=== PATIENT | female | born 1950 | race Caucasian/White ===

== ENCOUNTER → 2016-05-19 | Outpatient (CLI) | payer MEDICARE, OTHER ==
--- NOTE | 2016-05-19 09:20 | MM ---
Reason for exam: clinical finding. Last mammogram was performed 11 months ago. History: Patient is postmenopausal. Family history of breast cancer in cousin at age 53 and premenopausal breast cancer in mother at age 43. Benign left US cyst aspiration of the left breast, May 25, 2009. Benign left US cyst aspiration ea add of the left breast, January 31, 2005. Benign left US cyst aspiration of the left breast, January 31, 2005. Benign US left CoreBiopsy of the left breast, January 31, 2005. Benign excisional biopsy of the left breast, 1984. Cyst aspiration of the left breast. Cyst aspiration of the right breast. Indicated problem(s): pain in the right breast. Physical Findings: Nurse did not find any significant physical abnormalities on exam. MG 3D Diag Mammo W/Cad EDINSON Bilateral CC and MLO view(s) were taken. Prior study comparison: June 29, 2015, right breast MG 3d work up w/cad RT. June 25, 2015, bilateral MG screening mammo w CAD. The breast tissue is heterogeneously dense. This may lower the sensitivity of mammography. Previous mammotome biopsy in the left breast. No significant new findings when compared with previous films. These results were verbally communicated with the patient and result sheet given to the patient on 05/19/16. ASSESSMENT: Benign, BI-RAD 2 RECOMMENDATION: Ultrasound of the right breast in 6 months.
--- NOTE | 2016-05-19 09:22 | USB ---
Reason for exam: clinical finding. History: Patient is postmenopausal. Family history of breast cancer in cousin at age 53 and premenopausal breast cancer in mother at age 43. Benign left US cyst aspiration of the left breast, May 25, 2009. Benign left US cyst aspiration ea add of the left breast, January 31, 2005. Benign left US cyst aspiration of the left breast, January 31, 2005. Benign US left CoreBiopsy of the left breast, January 31, 2005. Benign excisional biopsy of the left breast, 1984. Cyst aspiration of the left breast. Cyst aspiration of the right breast. Indicated problem(s): pain in the right breast. US Breast RT Right breast ultrasound including all four quadrants, the retroareolar region and axilla demonstrates a 0.41 x 0.30 x 0.40cm mixed lesion at 2 o'clock and a 0.32 x 0.36 x 0.45cm cystic lesion at 10 o'clock nipple. The decision to biopsy can be made based on clinical findings. These results were verbally communicated with the patient and result sheet given to the patient on 05/19/16. ASSESSMENT: Probably benign, BI-RAD 3 RECOMMENDATION: Ultrasound of the right breast in 6 months. Manage on a clinical basis with regard to pain.
== END | disposition home or self-care (01) ==
LOC: RADMAMWWP 07:39
PROVIDERS: ATTEND Surgery
DX: N60.01 Solitary cyst of right breast (principal)
CPT/HCPCS: 76641; G0204; G0279

== ENCOUNTER → 2016-11-03 | Outpatient (CLI) | payer MEDICARE, OTHER ==
--- NOTE | 2016-11-03 11:39 | USB ---
Reason for exam: follow-up at short interval from prior study. History: Patient is postmenopausal. Family history of breast cancer in cousin at age 53 and premenopausal breast cancer in mother at age 43. Benign left US cyst aspiration of the left breast, May 25, 2009. Benign left US cyst aspiration ea add of the left breast, January 31, 2005. Benign left US cyst aspiration of the left breast, January 31, 2005. Benign US left CoreBiopsy of the left breast, January 31, 2005. Benign excisional biopsy of the left breast, 1984. Cyst aspiration of the left breast. Cyst aspiration of the right breast. Physical Findings: Nurse Summary: right breast posterior nipple prominent nodulaity, all soft, movable, nodular (nurse ts). US Breast RT Right breast ultrasound includes all four quadrants, the retroareolar region and axilla. Finding demonstrates a 0.3 x 0.2 x 0.2cm oval, hypoechoic lesion at 3 o'clock, too small to characterize well, possible new from prior exam for which a 6 month follow up ultrasound is recommended, a 0.3 x 0.3 x 0.2cm oval, hypoechoic lesion at 11 o'clock, too small to characterize well, possible new from prior exam for which a 6 month follow up ultrasound is recommended, a 0.3 x 0.4 x 0.3cm oval, hypoechoic lesion at 11:30, too small to characterize well, possible new from prior exam for which a 6 month follow up ultrasound is recommended and a 0.5 x 0.4 x 0.4cm oval, cystic lesion at the retroareolar position, corresponds to previous 10 o'clock lesion, benign. These results were verbally communicated with the patient and result sheet given to the patient on 11/03/16. ASSESSMENT: Probably benign, BI-RAD 3 RECOMMENDATION: Follow-up diagnostic mammogram of both breasts in 6 months. Back on schedule. Ultrasound of the right breast in 6 months.
== END | disposition home or self-care (01) ==
LOC: RADUSWWP 10:12
PROVIDERS: ATTEND Surgery
DX: R92.8 Other abnormal and inconclusive findings on diagnostic imaging of breast (principal)

== ENCOUNTER → 2017-05-11 | Outpatient (CLI) | payer MEDICARE, OTHER ==
--- NOTE | 2017-05-11 13:37 | MM ---
Reason for exam: additional evaluation requested from prior study. Last mammogram was performed 1 year ago. History: Patient is postmenopausal. Family history of breast cancer in cousin at age 53 and premenopausal breast cancer in mother at age 43. Benign left US cyst aspiration of the left breast, May 25, 2009. Benign left US cyst aspiration ea add of the left breast, January 31, 2005. Benign left US cyst aspiration of the left breast, January 31, 2005. Benign US left CoreBiopsy of the left breast, January 31, 2005. Benign excisional biopsy of the left breast, 1984. Cyst aspiration of the left breast. Cyst aspiration of the right breast. Physical Findings: Nurse Summary: 1cm nodule in the right breast at 12 o'clock (nurse dw). MG 3D Diag Mammo W/Cad EDINSON Bilateral CC and MLO view(s) were taken. Prior study comparison: May 19, 2016, bilateral MG 3d diag mammo w/cad EDINSON. June 29, 2015, right breast MG 3d work up w/cad RT. The breast tissue is heterogeneously dense. This may lower the sensitivity of mammography. Previous mammotome biopsy in the left breast. 7 o'clock and 1 o'clock nodular asymmetries on the left breast appear more defined/new. Palpable markers on the right at 12 o'clock. These results were verbally communicated with the patient and result sheet given to the patient on 05/11/17. ASSESSMENT: Incomplete: need additional imaging evaluation, BI-RAD 0 RECOMMENDATION: Ultrasound of both breasts.
--- NOTE | 2017-05-11 13:45 | USB ---
Reason for exam: additional evaluation requested from abnormal screening. History: Patient is postmenopausal. Family history of breast cancer in cousin at age 53 and premenopausal breast cancer in mother at age 43. Benign left US cyst aspiration of the left breast, May 25, 2009. Benign left US cyst aspiration ea add of the left breast, January 31, 2005. Benign left US cyst aspiration of the left breast, January 31, 2005. Benign US left CoreBiopsy of the left breast, January 31, 2005. Benign excisional biopsy of the left breast, 1984. Cyst aspiration of the left breast. Cyst aspiration of the right breast. US Breast BILAT Right breast ultrasound includes all four quadrants, the retroareolar region and axilla. Finding demonstrates a 3 x 3 x 4mm oval lesion too small to characterize at 11-12 o'clock and a 3 x 3 x 4mm oval, cystic lesion at the retroareolar position. No sonographic abnormality at the 12 o'clock palpable. Left breast ultrasound includes all four quadrants, the retroareolar region and axilla. Finding demonstrates a 3 x 3 x 3mm oval lesion too small to characterize at 7 o'clock, a 4 x 2 x 3mm small cystic cluster at 1 o'clock and a 6 x 5 x 6mm irregular, solid, hypoechoic lesion at 3:30, 2.5cm from nipple, for which a biopsy is recommended. These results were verbally communicated with the patient and result sheet given to the patient on 05/11/17. ASSESSMENT: Suspicious, BI-RAD 4 RECOMMENDATION: Surgical consultation and ultrasound core biopsy of the left breast. (3:30) Called with mammographic findings and has scheduled an appointment for the patient for 07/08/17 at 1:[address] Watson. Biopsy scheduled for 05/15/17 at 8:20. PRELIMINARY REPORT CALLED AND FAXED TO DR. WATSON ON 05/11/17.
== END | disposition home or self-care (01) ==
LOC: RADMAMWWP 10:05
PROVIDERS: ATTEND Surgery
DX: R92.8 Other abnormal and inconclusive findings on diagnostic imaging of breast (principal)
CPT/HCPCS: 77066; 76641; G0279

== ENCOUNTER → 2017-05-15 | Day surgery (SDC) | payer MEDICARE, OTHER ==
[2017-05-15 07:23] VITALS: BP 131/73; PULSE 83; RESP 16; TEMP 98; BMI 21.2
--- NOTE | 2017-05-15 08:42 | USB ---
Discontinued left breast core biopsy Ultrasound performed at the level of the previously identified lesion at 3:30 within the left breast. Exam is correlated to previous ultrasound dated 05/11/2017 The previously described lesion at the 3:30 position within the left breast is somewhat more well-def ined and the current exam measuring only 4 mm rather than 6 mm as on prior. There is central increase d echogenicity with shadowing, focus appears more well-defined. IMPRESSION: Following discussion with the patient, she elects to have short interval follow-up breast ultrasound in 3-6 months to assess for any interval change, consider biopsy at that time
== END ==
LOC: RADUSWWP 07:01
PROVIDERS: ATTEND Surgery
DX: N63.23 Unspecified lump in the left breast, lower outer quadrant (principal); Z53.9 Procedure and treatment not carried out, unspecified reason

== ENCOUNTER 2017-07-03 07:10 | Day surgery (SDC) | payer MEDICARE, OTHER ==
[2017-07-01 10:22] VITALS: BMI 21.0
[~2017-07-03 07:10] MED LIST: LACTATED RINGERS 1,000 ML IV SCH
[2017-07-03 07:26] VITALS: TEMP 97.6
[2017-07-03] MEDS ORDERED: PROPOFOL 10 MG/ML 20 ML VIAL IV ONE (07:42)
--- NOTE | 2017-07-03 07:57 | P.GSHP ---
History of Present Illness H&P Date: 07/03/17 Chief Complaint: Colon cancer screening Patient here today for colonoscopy. Last colonoscopy approximately 7 years ago. She has a history of colon polyps in the past. No family history of colon cancer. No bowel related complaints. Past Medical History Past Medical History: No Reported History History of Any Multi-Drug Resistant Organisms: None Reported Past Surgical History: Uterine Ablation Additional Past Surgical History / Comment(s): COLONOSCOPY. BREAST BIOPIES Past Anesthesia/Blood Transfusion Reactions: Previous Problems w/ Anesthesia, Family History of Problems w/ Anesthesia Additional Past Anesthesia/Blood Transfusion Reaction / Comment(s): HAD ANAPHYLACTIC REACTION WITH SUCCINYCHOLINE. BROTHER ALSO HAS ALLERGY TO SUCCINYCHOLINE Smoking Status: Never smoker - Past Family History Mother Family Medical History: No Reported History Medications and Allergies Home Medications Medication Instructions Recorded Confirmed Type No Known Home Medications [No 05/12/17 07/03/17 History Known Home Medications] Allergies Allergy/AdvReac Type Severity Reaction Status Date / Time erythromycin base Allergy Rash/Hives Verified 07/01/17 10:17 succinylcholine Allergy Anaphylaxis Verified 07/01/17 10:17 Surgical - Exam Vital Signs Temp Pulse Resp BP Pulse Ox 97.6 F 96 14 129/78 100 07/03/17 07:24 07/03/17 07:24 07/03/17 07:24 07/03/17 07:24 07/03/17 07:24 Physical exam: General: Well-developed, well-nourished HEENT: Normocephalic, sclerae nonicteric Abdomen: Nontender, nondistended Extremities: No edema Neuro: Alert and oriented Assessment and Plan (1) Colon cancer screening Narrative/Plan: Will proceed with colonoscopy at this time Current Visit: Yes Status: Acute Code(s): Z12.11 - ENCOUNTER FOR SCREENING FOR MALIGNANT NEOPLASM OF COLON SNOMED Code(s): 404427497
--- NOTE | 2017-07-03 08:17 | P.PCN ---
Date of Procedure: 07/03/17 Procedure(s) Performed: PREOPERATIVE DIAGNOSIS: Screening, history of polyps POSTOPERATIVE DIAGNOSIS: Small sigmoid polyp PROCEDURE: Colonoscopy with snare polypectomy ANESTHESIA: MAC SURGEON: Dudley Watson M.D. SPECIMENS: Sigmoid polyp ENDOSCOPIC PROCEDURE: The patient was placed on the endoscopy table in the left decubitus position. The Olympus colonoscope was inserted into the anus and passed under direct visualization to the base of the cecum. The appendiceal orifice was visualized. From that point the scope was slowly withdrawn inspecting all surfaces carefully. There were no neoplastic inflammatory or polypoid lesions throughout the cecum, ascending, transverse, and descending colon. In the sigmoid there is noted to be a small polyp that was removed using the snare with cautery technique. This was so small that it looked to be fulgurated completely with the use of cautery. No specimen was obtained. Rectum appeared normal. There is no visible diverticulosis. Digital rectal examination was normal. The patient was taken to the recovery room in stable condition per anesthesia guidelines. RECOMMENDATIONS: Await biopsy results. Follow-up colonoscopy 5-7 years.
[2017-07-03 08:22] VITALS: RESP 16
[2017-07-03 08:53] VITALS: BP 109/51; PULSE 78
== END 2017-07-03 09:07 | disposition home or self-care (01) ==
LOC: ORWHC2ENDO 07:10
PROVIDERS: ATTEND Surgery
DX: Z12.11 Encounter for screening for malignant neoplasm of colon (principal); K63.5 Polyp of colon; Z86.010 Personal history of colon polyps; Z88.4 Allergy status to anesthetic agent; Z88.1 Allergy status to other antibiotic agents
CPT/HCPCS: 45385; J2704

== ENCOUNTER → 2017-08-18 | Outpatient (CLI) | payer MEDICARE, OTHER ==
--- NOTE | 2017-08-18 12:08 | USB ---
Reason for exam: follow-up at short interval from prior study. History: Patient is postmenopausal. Family history of breast cancer in cousin at age 53 and premenopausal breast cancer in mother at age 43. US discontinued breast core LT of the left breast, May 15, 2017. Benign left US cyst aspiration of the left breast, May 25, 2009. Benign left US cyst aspiration ea add of the left breast, January 31, 2005. Benign left US cyst aspiration of the left breast, January 31, 2005. Benign US left CoreBiopsy of the left breast, January 31, 2005. Benign excisional biopsy of the left breast, 1984. Cyst aspiration of the left breast. Cyst aspiration of the right breast. Physical Findings: Nurse did not find any significant physical abnormalities on exam. US Breast LT Left breast ultrasound includes all four quadrants, the retroareolar region and axilla. Finding demonstrates a 0.4 x 0.2 x 0.4cm cystic cluster at 1 o'clock, a 0.5 x 0.6 x 0.7cm hypoechoic lesion at 3:30 and a 0.3 x 0.3 x 0.3cm lesion too small to characterize at 7 o'clock. These results were verbally communicated with the patient and result sheet given to the patient on 08/18/17. ASSESSMENT: Benign, BI-RAD 2 RECOMMENDATION: Follow-up diagnostic mammogram of both breasts in 9 months. Back on schedule for April 2018.
== END | disposition home or self-care (01) ==
LOC: RADUSWWP 08:56
PROVIDERS: ATTEND Surgery
DX: R92.8 Other abnormal and inconclusive findings on diagnostic imaging of breast (principal)

== ENCOUNTER → 2018-07-02 | Outpatient (CLI) | payer MEDICARE, OTHER ==
--- NOTE | 2018-07-02 11:00 | MM ---
Reason for exam: additional evaluation requested from prior study. Last mammogram was performed 1 year and 2 months ago. History: Patient is postmenopausal. Family history of breast cancer in cousin at age 53 and premenopausal breast cancer in mother at age 43. US discontinued breast core LT of the left breast, May 15, 2017. Benign left US cyst aspiration of the left breast, May 25, 2009. Benign left US cyst aspiration ea add of the left breast, January 31, 2005. Benign left US cyst aspiration of the left breast, January 31, 2005. Benign US left CoreBiopsy of the left breast, January 31, 2005. Benign excisional biopsy of the left breast, 1984. Cyst aspiration of the left breast. Cyst aspiration of the right breast. Physical Findings: Nurse did not find any significant physical abnormalities on exam. MG 3D Diag Mammo W/Cad EDINSON Bilateral CC and MLO view(s) were taken. Prior study comparison: May 11, 2017, bilateral MG 3d diag mammo w/cad EDINSON. May 19, 2016, bilateral MG 3d diag mammo w/cad EDINSON. The breast tissue is heterogeneously dense. This may lower the sensitivity of mammography. Benign appearing bilateral calcifications. Previous mammotome biopsy in the left breast. No significant new findings when compared with previous films. These results were verbally communicated with the patient and result sheet given to the patient on 07/02/18. ASSESSMENT: Benign, BI-RAD 2 RECOMMENDATION: Routine screening mammogram of both breasts in 1 year.
== END | disposition home or self-care (01) ==
LOC: RADMAMWWP 09:24
PROVIDERS: ATTEND Surgery
DX: R92.8 Other abnormal and inconclusive findings on diagnostic imaging of breast (principal)
CPT/HCPCS: 77066; G0279; 77062

== ENCOUNTER → 2021-02-06 | Outpatient (CLI) | payer MEDICARE, OTHER ==
--- NOTE | 2021-02-06 13:11 | BD ---
EXAMINATION TYPE: Axial Bone Density DATE OF EXAM: 02/06/2021 COMPARISON: 06.30.2012 CLINICAL HISTORY: 70 YR OLD FEMALE......ICD-10 CODE: M85.859 OSTEOPENIA OF HIP Height: 61.8 Weight: 121 FRAX RISK QUESTIONS: NOTHING TO NOTE HERE RISK FACTORS HISTORY OF: History of Wrist Fracture: RT WRIST YOUNG ADULT Postmenopausal woman: YES, AT AGE 53 Hyperparathyroidism: NO Adrenal Insufficiency: NO MEDICATIONS: Additional Medications: VIT D, Additional History: NOTHING TO NOTE EXAM MEASUREMENTS: Bone mineral densitometry was performed using the [employer] System. Bone mineral density as measured about the Lumbar spine is: ----- L1-L4(G/cm2): 0.963 T Score Values are as follows: ----- L1: -1.7 ----- L2: -1.9 ----- L3: -1.6 ----- L4: -2.1 ----- L1-L4: -1.8 Bone mineral density has: Decreased -11.0% since study of: 06.30.2012 Bone mineral density about the R hip (g/cm2): 0.743 Bone mineral density about the L hip (g/cm2): 0.701 T Score values are as follows: -----R Neck: -2.1 -----L Neck: -2.6 -----R Total: -2.1 -----L Total: -2.4 Bone mineral density has: Decreased -11.3% since study of: 06.30.2012 FRAX%s: THERE IS A 14.3% CHANCE FOR A MAJOR OSTEOPOROTIC FX AND A 3.9% FOR HIP.....PROBABILITY FOR FX IN 10 YRS TIME IMPRESSION: Osteoporosis (T Score less than -2.5). There is increased fracture risk and therapy is usually indicated based on age. Re-Screen 1-2 years. NOTE: T-SCORE=SD OF THE YOUNG ADULT MEAN.
--- NOTE | 2021-02-07 14:20 | MM ---
Reason for exam: screening (asymptomatic). Last mammogram was performed 1 year and 3 months ago. History: Patient is postmenopausal. Family history of breast cancer in cousin at age 53 and premenopausal breast cancer in mother at age 43. US discontinued breast core LT of the left breast, May 15, 2017. Benign left US cyst aspiration of the left breast, May 25, 2009. Benign left US cyst aspiration ea add of the left breast, January 31, 2005. Benign left US cyst aspiration of the left breast, January 31, 2005. Benign US left CoreBiopsy of the left breast, January 31, 2005. Benign excisional biopsy of the left breast, 1984. Cyst aspiration of the left breast. Cyst aspiration of the right breast. Physical Findings: A clinical breast exam by your physician is recommended on an annual basis and results should be correlated with mammographic findings. MG 3D Screening Mammo W/Cad Bilateral CC and MLO view(s) were taken. Prior study comparison: November 18, 2019, bilateral MG 3d screening mammo w/cad. July 02, 2018, bilateral MG 3d diag mammo w/cad EDINSON. The breast tissue is heterogeneously dense. This may lower the sensitivity of mammography. Previous mammotome biopsy in the right breast. No significant changes when compared with prior studies. ASSESSMENT: Benign, BI-RAD 2 RECOMMENDATION: Routine screening mammogram of both breasts in 1 year.
== END | disposition home or self-care (01) ==
LOC: RADMAMWWP 08:06
PROVIDERS: ATTEND Internal Medicine
DX: Z12.31 Encounter for screening mammogram for malignant neoplasm of breast (principal); M85.859 Other specified disorders of bone density and structure, unspecified thigh; M81.0 Age-related osteoporosis without current pathological fracture
CPT/HCPCS: 77063; 77067; 77080

== ENCOUNTER → 2021-11-28 | Outpatient (CLI) | payer MEDICARE | END | disposition home or self-care (01) | LOC: RADMAMWWP 10:17 | PROVIDERS: ATTEND Internal Medicine | DX: Z53.9 Procedure and treatment not carried out, unspecified reason (principal) ==

== ENCOUNTER → 2022-01-23 | Outpatient (CLI) | payer MEDICARE ==
--- NOTE | 2022-01-23 12:10 | NM ---
EXAMINATION TYPE: NM stress cardiolite complete DATE OF EXAM: 01/23/2022 COMPARISON: NONE HISTORY: Chest pain TECHNIQUE: After the intravenous administration of 9.6 mCi Tc 99m Sestamibi - Rest images obtained 4 5 minutes post injection. The patient exercised using a IVAN protocol and 1 minute prior to peak e xercise was injected with 24 mCi Tc 99m Sestamibi - Stress images obtained 25 minutes post injection. FINDINGS: Targeted heart rate was achieved during performance of the study. Review of stress and rest SPECT josé luis ges demonstrates no distinct perfusion abnormality. Gated analysis shows normal wall motion with an estimated left ventricular ejection fraction of 56 %. IMPRESSION: No scintigraphic evidence for reversible ischemia
== END | disposition home or self-care (01) ==
LOC: RADNMMAIN 08:15
PROVIDERS: ATTEND Internal Medicine
DX: I25.10 Atherosclerotic heart disease of native coronary artery without angina pectoris (principal)
CPT/HCPCS: 93017; 78452; A9500

== ENCOUNTER → 2022-02-13 | Outpatient (CLI) | payer MEDICARE ==
--- NOTE | 2022-02-14 09:47 | MM ---
Reason for Exam: Screening (asymptomatic). Last screening mammogram was performed 12 month(s) ago. Patient History: Menarche at age 15. First Full-Term at age 21. Postmenopausal. Cyst Aspiration on the Right side. Cyst Aspiration on the Left side. 1984, Benign Excisional Biopsy on the left side. 05/25/2009, Benign Cyst Aspiration on the left side. 01/31/2005, Benign Cyst Aspiration on the left side. 01/31/2005, Benign Cyst Aspiration on the left side. 01/31/2005, Benign Core Biopsy on the left side. 05/15/2017, US discontinued breast core LT on the left side. Maternal cousin had breast cancer, age 53. Maternal cousin had breast cancer under age 50. Mother had breast cancer, age 43. Risk Values: Mable 5 year model risk: 4.5%. NCI Lifetime model risk: 12.7%. Prior Study Comparison: 07/02/2018 Bilateral Diagnostic Mammogram, [facility]. 11/18/2019 Bilateral Screening Mammogram, [facility]. 02/06/2021 Bilateral Screening Mammogram, [facility]. Tissue Density: The breast tissue is heterogeneously dense. This may lower the sensitivity of mammography. Findings: Analyzed By CAD. Left breast biopsy clip is present. There is no suspicious group of microcalcifications or new suspicious mass in either breast. Overall Assessment: Negative, BI-RAD 1 Management: Screening Mammogram of both breasts in 1 year. A clinical breast exam by your physician is recommended on an annual basis and results should be correlated with mammographic findings. [facility] will attempt to contact patient to return for supplemental views and ultrasound if indicated. Electronically signed and approved by: Kurtis Cardenas DO
== END | disposition home or self-care (01) ==
LOC: RADMAMWWP 09:59
PROVIDERS: ATTEND Internal Medicine
DX: Z12.31 Encounter for screening mammogram for malignant neoplasm of breast (principal)
CPT/HCPCS: 77063; 77067

== ENCOUNTER → 2023-02-17 | Outpatient (CLI) | payer MEDICARE ==
--- NOTE | 2023-02-17 14:31 | BD ---
EXAMINATION TYPE: Axial Bone Density DATE OF EXAM: 02/17/2023 CLINICAL HISTORY: 72 years old Female. ICD-10 CODE: M81.0 AGE RELATED OSTEOPOROSIS Height: 62 Weight: 117.6 FRAX RISK QUESTIONS: Alcohol (3 or more units per day): no Family History (Parent hip fracture): no Glucocorticoids (More than 3mos): no (Ex: prednisone, prednisolone, methylprednisolone, dexamethasone, and hydrocortisone). History of Fracture in Adulthood: no Secondary Osteoporosis: 1. Type 1 Diabetes: no 2. Hyperthyroidism: no 3. Menopause before 45: no 4. Malnutrition: no 5. Chronic liver disease: no Rheumatoid Arthritis: no Current Tobacco Use: no RISK FACTORS HISTORY OF: Active: yes Postmenopausal woman: yes Additional History: EXAM MEASUREMENTS: Bone mineral densitometry was performed using the [employer] System. Bone mineral density as measured about the Lumbar spine is: ----- L1-L4(G/cm2): 0.947 T Score Values are as follows: ----- L1: -1.9 ----- L2: -2.3 ----- L3: -1.6 ----- L4: -2.1 ----- L1-L4: -1.9 Z Score Values are as follows: ----- L1: 0.2 ----- L2: -0.2 ----- L3: 0.5 ----- L4: 0.0 ----- L1-L4: 0.1 Bone mineral density has: decreased -1.7 % since study of: 02.06.2021 Bone mineral density about the R hip (g/cm2): 0758 Bone mineral density about the L hip (g/cm2): 0.727 T Score values are as follows: -----R Neck: -1.7 -----L Neck: -2.2 -----R Total: -2.0 -----L Total: -2.2 Z Score values are as follows: -----R Neck: 0.3 -----L Neck: -0.2 -----R Total: -0.1 -----L Total: -0.4 Bone mineral density has: increased 2.8 % since study of: 02.06.2021 FRAX%s: The graph provided illustrates a 12.7% chance for a major osteoporotic fx and a 3.2% chance f or the hips probability for fx in 10 years time. IMPRESSION: Osteopenia (T Score between -2.5 and -1). There is slightly increased risk of fracture and the patient may be considered for treatment. Re-Screen 2-5 years. NOTE: T-SCORE=SD OF THE YOUNG ADULT MEAN.
--- NOTE | 2023-02-18 15:50 | MM ---
Reason for Exam: Screening (asymptomatic). Last screening mammogram was performed 12 month(s) ago. Patient History: Menarche at age 15. First Full-Term at age 21. Postmenopausal. Cyst Aspiration on the Right side. Cyst Aspiration on the Left side. 1984, Benign Excisional Biopsy on the left side. 05/25/2009, Benign Cyst Aspiration on the left side. 01/31/2005, Benign Cyst Aspiration on the left side. 01/31/2005, Benign Cyst Aspiration on the left side. 01/31/2005, Benign Core Biopsy on the left side. 05/15/2017, US discontinued breast core LT on the left side. Maternal cousin had breast cancer, age 53. Maternal cousin had breast cancer under age 50. Mother had breast cancer, age 43. Risk Values: Mable 5 year model risk: 4.5%. NCI Lifetime model risk: 12.2%. Prior Study Comparison: 11/18/2019 Bilateral Screening Mammogram, [facility]. 02/06/2021 Bilateral Screening Mammogram, [facility]. 02/13/2022 Bilateral MG 3D screening mammo w/cad, [facility]. Tissue Density: The breast tissue is heterogeneously dense. This may lower the sensitivity of mammography. Findings: Analyzed By CAD. Appears symmetrical and stable. No significant interval change is evident. Benign calcifications are present bilaterally. Core markers within the left breast. No suspicious groups of microcalcifications, spiculated or lobular masses, architectural distortion or other secondary signs of malignancy are mammographically apparent. Overall Assessment: Benign, BI-RAD 2 Management: Screening Mammogram of both breasts in 1 year. A negative mammogram report should not preclude additional follow up of suspicious palpable abnormalities. Patient should continue monthly self breast exam. A clinical breast exam by your physician is recommended on an annual basis and results should be correlated with mammographic findings. Electronically signed and approved by: Abimael Junior D.O. Radiologis
== END | disposition home or self-care (01) ==
LOC: RADMAMWWP 08:49
PROVIDERS: ATTEND Internal Medicine
DX: Z12.31 Encounter for screening mammogram for malignant neoplasm of breast (principal); M81.0 Age-related osteoporosis without current pathological fracture; M85.89 Other specified disorders of bone density and structure, multiple sites; Z78.0 Asymptomatic menopausal state; Z80.3 Family history of malignant neoplasm of breast
CPT/HCPCS: 77063; 77067; 77080

== ENCOUNTER → 2023-08-12 | Outpatient (CLI) | payer MEDICARE ==
--- NOTE | 2023-08-12 09:26 | MM ---
Reason for Exam: Follow-up at short interval from prior study. Last screening mammogram was performed 6 month(s) ago. Patient History: Menarche at age 15. First Full-Term at age 21. Postmenopausal. Patient used Hormonal Contraceptives for 1 year. Cyst Aspiration on the Right side. Cyst Aspiration on the Left side. 1984, Benign Excisional Biopsy on the left side. 05/25/2009, Benign Cyst Aspiration on the left side. 01/31/2005, Benign Cyst Aspiration on the left side. 01/31/2005, Benign Cyst Aspiration on the left side. 01/31/2005, Benign Core Biopsy on the left side. 05/15/2017, US discontinued breast core LT on the left side. Maternal cousin had breast cancer, age 53. Maternal cousin had breast cancer under age 50. Mother had breast cancer, age 43. Risk Values: Mable 5 year model risk: 4.6%. NCI Lifetime model risk: 11.6%. Prior Study Comparison: 07/28/1995 Screening Mammogram, Unknown. 08/09/1996 Screening Mammogram, Unknown. 06/29/2015 Right Diagnostic Mammogram, [facility]. 02/28/2016 Right Diagnostic Ultrasound, [facility]. 05/19/2016 Bilateral Diagnostic Mammogram, [facility]. 05/19/2016 Right Diagnostic Ultrasound, [facility]. 11/03/2016 Right Diagnostic Ultrasound, [facility]. 05/11/2017 Bilateral Diagnostic Mammogram, [facility]. 05/11/2017 Bilateral Diagnostic Ultrasound, [facility]. 08/18/2017 Left Diagnostic Ultrasound, [facility]. 07/02/2018 Bilateral Diagnostic Mammogram, [facility]. 11/18/2019 Bilateral Screening Mammogram, [facility]. 02/06/2021 Bilateral Screening Mammogram, [facility]. 02/13/2022 Bilateral MG 3D screening mammo w/cad, [facility]. 02/17/2023 Bilateral MG 3D screening mammo w/cad, [facility]. Tissue Density: The breasts are heterogeneously dense, which may obscure small masses. Findings: Analyzed By CAD. The pattern is symmetrical. No significant interval change is evident. A core marker is within the left breast. Prior left breast (biopsy near the nipple region is marked on this exam. No suspicious abnormalities to account for the pulling sensation is identified. Ultrasound left breast is recommended for additional workup. Coarse benign-appearing calcifications remain present within the left breast. Benign round and punctate calcifications are present bilaterally. No suspicious groups of microcalcifications, spiculated or lobular masses, architectural distortion or other secondary signs of malignancy are mammographically apparent. Overall Assessment: Incomplete: need additional imaging evaluation, BI-RAD 0 Management: Diagnostic Breast Ultrasound of the left breast. A negative mammogram report should not preclude additional follow up of suspicious palpable abnormalities. Patient should continue monthly self breast exam. A clinical breast exam by your physician is recommended on an annual basis and results should be correlated with mammographic findings. Note on Mable scores and lifetime risk: 1. A Mable score greater than 3% is considered moderate risk. If this is the case, consider specialist referral to assess eligibility for a risk reducing agent. 2. If overall lifetime risk for the development of breast cancer is 20% or higher, the patient may qualify for future screening with alternating mammogram and breast MRI. Electronically signed and approved by: Abimael Junior D.O. Radiologis
--- NOTE | 2023-08-12 09:49 | USB ---
Reason for Exam: Clinical finding. Patient History: Menarche at age 15. First Full-Term at age 21. Postmenopausal. Patient used Hormonal Contraceptives for 1 year. Cyst Aspiration on the Right side. Cyst Aspiration on the Left side. 1984, Benign Excisional Biopsy on the left side. 05/25/2009, Benign Cyst Aspiration on the left side. 01/31/2005, Benign Cyst Aspiration on the left side. 01/31/2005, Benign Cyst Aspiration on the left side. 01/31/2005, Benign Core Biopsy on the left side. 05/15/2017, US discontinued breast core LT on the left side. Maternal cousin had breast cancer, age 53. Maternal cousin had breast cancer under age 50. Mother had breast cancer, age 43. Risk Values: Mable 5 year model risk: 4.6%. NCI Lifetime model risk: 11.6%. Technique: Method: Whole Breast Handheld. Doppler: Color. Patient Position: Supine. Prior Study Comparison: 08/18/2017 Left Diagnostic Ultrasound, [facility]. 02/06/2021 Bilateral Screening Mammogram, [facility]. 02/13/2022 Bilateral MG 3D screening mammo w/cad, [facility]. 02/17/2023 Bilateral MG 3D screening mammo w/cad, [facility]. Findings: The whole breast of the left breast, the axilla of the left breast and the retroareolar of the left breast were scanned. Small cysts is at the 4:00 position approximately 3 cm from the nipple. This area is a location of the patient's prior open biopsy. Some vague shadowing may be present as region likely related to the prior biopsy scar. This correlates with the patient's area of pulling. Management recommended. If clinical findings are changing, diagnostic imaging with mammogram and ultrasound can be performed. Overall Assessment: Benign, BI-RAD 2 Management: Screening Mammogram of both breasts in 6 months. A clinical breast exam by your physician is recommended on an annual basis and results should be correlated with mammographic findings. This exam should not preclude additional follow-up of suspicious palpable abnormalities. Results were given to the patient verbally at the time of exam. Electronically signed and approved by: Abimael Junior D.O. Radiologis
== END | disposition home or self-care (01) ==
LOC: RADMAMWWP 08:29
PROVIDERS: ATTEND Internal Medicine
DX: R92.333 Mammographic heterogeneous density, bilateral breasts (principal); N60.02 Solitary cyst of left breast; Z80.3 Family history of malignant neoplasm of breast; Z78.0 Asymptomatic menopausal state
CPT/HCPCS: 77066; 76641; G0279; 77062

== ENCOUNTER → 2024-02-02 | Outpatient (CLI) | payer MEDICARE ==
[2024-02-02 13:28] VITALS: BP 144/75; PULSE 65; RESP 16; TEMP 98.1
--- NOTE | 2024-02-02 14:24 | P.HPOB ---
History of Present Illness H&P Date: 02/02/24 Chief Complaint: Patient is here for her routine gynecologic exam. This is a 73-year-old G2, P2 with an LMP of 2003. The patient is here to establish with this office. It has been about 2 years since her last pelvic exam. She previously saw Dr. Hayes for her gynecologic care prior to age 66. She is without gynecologic complaints and denies any postmenopausal bleeding. Review of Systems The patient's weight has been stable over the last year. She denies respiratory, cardiac, or G.I. problems. Past Medical History Past Medical History: Hyperlipidemia Additional Past Medical History / Comment(s): Cystic breasts. Osteopenia. 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 History of Any Multi-Drug Resistant Organisms: None Reported Past Surgical History: Uterine Ablation Additional Past Surgical History / Comment(s): hx. benign aspirations bilateral breasts. Breast biopsy in the past. D&C. Colonoscopy 2018(next after 7yr) Additional Past Anesthesia/Blood Transfusion Reaction / Comment(s): allergy to succinylcholine- severe. 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 She is not sexually active. - Past Family History Mother Family Medical History: Cancer Additional Family Medical History / Comment(s): Breast cancer. . Maternal cousins had breast cancer. Maternal aunt had cervical cancer. Father Family Medical History: COPD Additional Family Medical History / Comment(s): Multiple sclerosis. . Sister(s) Family Medical History: Rheumatoid Arthritis (RA) Medications and Allergies Home Medications Medication Instructions Recorded Confirmed Type No Known Home Medications 05/12/17 07/03/17 History Allergies Allergy/AdvReac Type Severity Reaction Status Date / Time erythromycin base Allergy Rash/Hives Verified 02/02/24 13:25 succinylcholine Allergy Anaphylaxis Verified 02/02/24 13:25 Exam Vital Signs Temp Pulse Resp BP Pulse Ox 02/02/24 13:26 98.1 F 65 16 144/75 98 Intake and Output 02/01/24 02/02/24 02/02/24 22:59 06:59 14:59 Other: Weight 54.431 kg Height 5 feet 1 inch, weight 120 pounds, BMI 22.7. This is a well-developed well-nourished white female who is alert and oriented times 3 in no acute distress. HEENT: Within normal limits. NECK: Supple without mass or thyromegaly. CHEST AND LUNGS: Clear to auscultation. HEART: Regular rate and rhythm. BREASTS: Are without mass or discharge. AXILLARY EXAM: Negative for adenopathy. BACK: Negative for CVA tenderness. ABDOMEN: Soft, nontender, without palpable masses. PELVIC EXAM: Normal external genitalia with mild to moderate atrophy. Cervix and vagina appear normal with moderate atrophy. Cervix is stenotic secondary to atrophy there is no unusual discharge. There is no evidence of prolapse. The uterus is midposition, atrophic, nongravid size and nontender. There are no palpable adnexal masses or tenderness. RECTAL EXAM: Rectovaginal exam is negative for mass or tenderness and is negative for occult blood. EXTREMITIES: Nontender. IMPRESSION: 1. 73-year-old menopausal female with normal gynecologic exam. 2. History of osteopenia. PLAN: 1. Pap smear was performed. We will be requesting records from Dr. Hayes's office regarding her Pap smears after the age of 56. We will then determine if Pap smears can be discontinued. 2. Self breast awareness was discussed with the patient. We have also discussed symptoms associated with inflammatory breast cancer. 3. Screening mammogram is due and the order slip was given to the patient for this. 4. Osteoporosis prevention was discussed. I have stressed the importance of adequate calcium, vitamin D and regular exercise. Recommended amounts of calcium and vitamin D were also discussed. 5. She was advised to return in one year for her annual well woman exam.
== END ==
LOC: WWCWWP 13:05
PROVIDERS: ATTEND Obstetrics & Gynecology
DX: Z01.419 Encounter for gynecological examination (general) (routine) without abnormal findings

== ENCOUNTER → 2024-04-13 | Outpatient (CLI) | payer MEDICARE ==
[2024-04-13 12:06] VITALS: BP 127/78; PULSE 79; RESP 16; TEMP 98
--- NOTE | 2024-04-13 12:54 | P.PN ---
Progress Note - Text Progress Note Date: 04/13/24 Chief Complaint: Left breast burning which is intermittent. HPI: This is a 74-year-old G2, P2 with an LMP of 2003. The patient had her last bilateral screening mammogram on 02/17/2023 which was benign. She did have a left diagnostic mammogram because of left breast discomfort on 08/12/2023. This was felt to be benign. They did see areas of small cysts which were felt to be benign. This was done with a ultrasound of the left breast.. Screening mammogram was recommended on both sides in 6 months. The patient states she has been noticing more burning discomfort in the left breast at approximately the 2 o'clock position about 3 cm from the areola. She also states she feels small lumps that are pea-sized. She is very concerned because she has had a history of lots of breast abnormalities and breast cysts. The patient states she has noticed more left breast burning in this area when she was drinking more des tea and coffee. She is try to cut back on these things ROS: Unremarkable. PE: Blood pressure: 127/78, Height: 5 feet 2 inches, Weight: 120 pounds, Temperature: 98.0, Pulse: 79. This is a well developed, well nourished, white female who is alert and orientedx3, in no acute distress. Bilateral breasts reveal moderate fibrous tissue throughout. At the 2 o'clock position of the left breast she is mildly tender and there are small 3 to 4 mm lumps that could be small cyst or glandular tissue. There are no masses greater than 3 to 4 mm. Impression: 1. 74-year-old menopausal female with left breast discomfort described as burning with small lumps felt by the patient in the area at approximately 2:00 in the left breast. 2. The patient is due for a bilateral mammogram Plan: 1. Bilateral diagnostic mammogram is recommended and the order slip was given to the patient for this. 2. She will continue to try to decrease caffeinated beverages. 3. She will also return when she is due for well woman examination Time spent with the patient: 20 minutes
== END ==
LOC: WWCWWP 11:55
PROVIDERS: ATTEND Obstetrics & Gynecology
DX: N60.02 Solitary cyst of left breast (principal); N63.21 Unspecified lump in the left breast, upper outer quadrant; Z78.0 Asymptomatic menopausal state; Z88.1 Allergy status to other antibiotic agents; Z88.8 Allergy status to other drugs, medicaments and biological substances

== ENCOUNTER → 2024-06-29 | Outpatient (CLI) | payer MEDICARE ==
--- NOTE | 2024-04-26 12:36 | P.PN ---
Progress Note - Text Progress Note Date: 04/26/24 The patient states she went for her diagnostic mammogram and the radiologist reviewed her mammogram from earlier in the year. Her symptoms were also improved. After discussion with the radiology department, she decided to wait until her next yearly mammogram is due. She feels that cutting out caffeine from her diet has helped with her symptoms. She will return in July for her mammogram. She was also instructed to call if she is having increasing symptoms or problems.
--- NOTE | 2024-06-29 10:53 | MM ---
Reason for Exam: Clinical finding. Last screening mammogram was performed 11 month(s) ago. Patient History: Menarche at age 15. First Full-Term at age 21. Postmenopausal. Patient used Hormonal Contraceptives for 1 year. Cyst Aspiration on the Right side. Cyst Aspiration on the Left side. 1984, Benign Excisional Biopsy on the left side. 05/25/2009, Benign Cyst Aspiration on the left side. 01/31/2005, Benign Cyst Aspiration on the left side. 01/31/2005, Benign Cyst Aspiration on the left side. 01/31/2005, Benign Core Biopsy on the left side. 05/15/2017, US discontinued breast core LT on the left side. Maternal cousin had breast cancer, age 53. Maternal cousin had breast cancer under age 50. Mother had breast cancer, age 43. Risk Values: Mable 5 year model risk: 4.6%. NCI Lifetime model risk: 11.0%. Prior Study Comparison: 07/28/1995 Screening Mammogram, Unknown. 08/09/1996 Screening Mammogram, Unknown. 02/28/2016 Right Diagnostic Ultrasound, [facility]. 05/19/2016 Bilateral Diagnostic Mammogram, [facility]. 05/19/2016 Right Diagnostic Ultrasound, [facility]. 11/03/2016 Right Diagnostic Ultrasound, [facility]. 05/11/2017 Bilateral Diagnostic Mammogram, [facility]. 05/11/2017 Bilateral Diagnostic Ultrasound, [facility]. 08/18/2017 Left Diagnostic Ultrasound, [facility]. 07/02/2018 Bilateral Diagnostic Mammogram, [facility]. 11/18/2019 Bilateral Screening Mammogram, [facility]. 02/06/2021 Bilateral Screening Mammogram, [facility]. 02/13/2022 Bilateral MG 3D screening mammo w/cad, [facility]. 02/17/2023 Bilateral MG 3D screening mammo w/cad, [facility]. 08/12/2023 Bilateral MG 3D diag mammo w/cad [facility], [facility]. 08/12/2023 Bilateral US breast BILAT, [facility]. Tissue Density: The breasts are heterogeneously dense, which may obscure small masses. Findings: Analyzed By CAD. Asymmetric density central inner left cc view posterior depth does not persist on spot review. Findings compatible with superimposition shadow. There is a circumscribed 5 mm nodular density approximately 3-4 o'clock seen only on MLO and lateral view. Otherwise, benign oil cyst calcifications are unchanged. Microclip left breast from prior biopsy. Overall Assessment: Incomplete: need additional imaging evaluation, BI-RAD 0 Management: Diagnostic Breast Ultrasound of the left breast. Lateral half for patient and physician palpated areas and pain. [facility], , 06/29/2024 10:50 AM. Electronically signed and approved by: Marielle To M.D. Radiologist
--- NOTE | 2024-06-29 11:25 | USB ---
Reason for Exam: Clinical finding. Patient History: Menarche at age 15. First Full-Term at age 21. Postmenopausal. Patient used Hormonal Contraceptives for 1 year. Cyst Aspiration on the Right side. Cyst Aspiration on the Left side. 1984, Benign Excisional Biopsy on the left side. 05/25/2009, Benign Cyst Aspiration on the left side. 01/31/2005, Benign Cyst Aspiration on the left side. 01/31/2005, Benign Cyst Aspiration on the left side. 01/31/2005, Benign Core Biopsy on the left side. 05/15/2017, US discontinued breast core LT on the left side. Maternal cousin had breast cancer, age 53. Maternal cousin had breast cancer under age 50. Mother had breast cancer, age 43. Risk Values: Mable 5 year model risk: 4.6%. NCI Lifetime model risk: 11.0%. Technique: Method: Targeted. Prior Study Comparison: 02/13/2022 Bilateral MG 3D screening mammo w/cad, [facility]. 02/17/2023 Bilateral MG 3D screening mammo w/cad, [facility]. 08/12/2023 Bilateral MG 3D diag mammo w/cad [facility], [facility]. Findings: The lateral section of the breast of the left breast, the axilla of the left breast and the retroareolar of the left breast were scanned. Ultrasound lateral half of the left breast 12:00 to 6:00 including scanning of the subareolar region and axilla. At 4:00, 5 cm from the nipple, there is a benign 5 mm cyst, likely mammographic correlate. Six-month follow-up mammogram recommended. No other solid or cystic lesion or axillary adenopathy. Overall Assessment: Probably benign, BI-RAD 3 Management: Diagnostic Mammogram of the left breast in 6 months. A clinical breast exam by your physician is recommended on an annual basis and results should be correlated with mammographic findings. This exam should not preclude additional follow-up of suspicious palpable abnormalities. Results were given to the patient verbally at the time of exam. Note on Mable scores and lifetime risk: 1. A Mable score greater than 3% is considered moderate risk. If this is the case, consider specialist referral to assess eligibility for a risk reducing agent. 2. If overall lifetime risk for the development of breast cancer is 20% or higher, the patient may qualify for future screening with alternating mammogram and breast MRI. [facility], , 06/29/2024 11:22 AM. Electronically signed and approved by: Marielle To M.D. Radiologist
== END | disposition home or self-care (01) ==
LOC: RADMAMWWP 04-21 07:49
PROVIDERS: ATTEND Obstetrics & Gynecology
DX: R92.333 Mammographic heterogeneous density, bilateral breasts (principal); N64.4 Mastodynia; Z78.0 Asymptomatic menopausal state; Z80.3 Family history of malignant neoplasm of breast; Z92.0 Personal history of contraception
CPT/HCPCS: 77066; 76642; G0279; 77062